=== PATIENT | male | born 1945 | race Caucasian/White ===

== ENCOUNTER 2020-06-22 21:16 | Emergency (ER) | payer MEDICARE, OTHER ==
[2020-06-22 22:11] LABS: RED BLOOD COUNT 2.16 M/UL (4.20-5.50); WHITE BLOOD COUNT 5.6 K/UL (4.5-11.0)
[2020-06-22 22:18] LABS: HEMOGLOBIN 6.3 gm/dl (14.0-17.5)
[2020-06-22 22:46] LABS: BUN/CREATININE RATIO 35 (0-10)
== END 2020-06-23 01:21 | disposition short-term general hospital (02) ==
LOC: ER1 21:16
PROVIDERS: Emergency Medicine
DX: R40.20 Unspecified coma (principal); D64.9 Anemia, unspecified; R79.1 Abnormal coagulation profile; Z95.1 Presence of aortocoronary bypass graft; R91.8 Other nonspecific abnormal finding of lung field; Z88.5 Allergy status to narcotic agent; Z91.041 Radiographic dye allergy status; Z20.822 Contact with and (suspected) exposure to COVID-19
CPT/HCPCS: 31500; 36430; 36600; 70450; 71045; 71250; 80053; 80307; 81001; 82140; 82272; 82550; 82553; 82803; 83605; 83690; 83735; 83874; 83880; 84100; 84439; 84443; 84484; 85025; 85610; 85730; 86850; 86900; 86901; 86920; 87040; 87086; 93005; 94002; 94760; 96365; 96367; 96375; 99285; C9132; G0480; J3370; J3430; J7030; P9016; U0002